=== PATIENT | male | born 1990 | race Caucasian/White ===

== ENCOUNTER 2022-12-06 11:50 | Emergency (ER) | payer BC, OTHER ==
[2022-12-06] MEDS ORDERED: Lidocaine 1% 5 ML VIAL INJECT ONE (13:08)
[2022-12-06] MEDS ORDERED: Bacitracin/Neomycin/Polymyxin B Oint 0.9 GM U/D Packet TOP ONE (13:47)
[2022-12-06] MEDS ORDERED: Ketorolac 10 MG Tab PO ONE (13:57)
== END 2022-12-06 14:04 | disposition home or self-care (01) ==
LOC: LL.ED 11:50
DX: S61.233A Puncture wound without foreign body of left middle finger without damage to nail, initial encounter (principal); S61.211A Laceration without foreign body of left index finger without damage to nail, initial encounter; W29.4XXA Contact with nail gun, initial encounter
CPT/HCPCS: 12001; 99283; J3490